=== PATIENT | female | born 1930 | race Caucasian/White ===

== ENCOUNTER 2016-05-16 14:59 | Inpatient (IN) | payer MEDICARE, OTHER ==
--- NOTE | ~2016-05-16 | HP ---
History And Physical [place] [id number] [place]. [address] NAME: KONSTANTIN LINTON : 32 STATUS : ADM Bartolo PAT#: [id number] AGE: 85 ADM/REG DATE : 05/16/16 MR#: [id number] REPORT SERV DATE: 05/17/16 DICTATED BY: ELIJAH MISTRY DATE: 05/16/16 REPORT STATUS : Draft TRANSCRIBED BY: YAYO DATE: 05/16/16 DATE OF ADMISSION: 05/16/2016 CHIEF COMPLAINT: Right flank and right-sided chest discomfort. HISTORY OF PRESENT ILLNESS: This is an 85-year-old female with a past medical history of chronic pain, on chronic pain management on chronic narcotics. The patient states that she began to have a right-sided flank and chest pain that radiated up to the right side of the neck when she was diagnosed in 01/2016 with pneumonia and has progressed. The patient has had recent admissions to the hospital. She states that she was admitted to the hospital in [place] and also states that she was diagnosed with a collapsed lung in 02/2016 and was sent to rehab after discharge. The patient was seen by ortho lactation specialist yesterday and had several spinal injections, however, required to be seeing at [facility] for worsening right-sided chest discomfort and a right flank discomfort. The patient at that time had a CTA of the chest at [facility] yesterday which was reported nondiagnostic. However, medical records are still pending. The patient presented to [facility] ER, seen in the ER by Dr. Herrmann, who ordered a chest x-ray with findings of a small apical right pneumothorax. The patient states she has been having hemoptysis as well for the past two days. She does take intermittent aspirin and also describes some night sweats and subjective fever and chills and associated nausea, positive constipation. Currently at this time denies any shortness of breath but does have generalized weakness. The hospitalist was called to admit the patient to the hospital. REVIEW OF SYSTEMS: Please refer to HPI. PAST MEDICAL HISTORY: Chronic atrial fibrillation; hypertension; hyperlipidemia; emphysema; arthritis; anxiety; GERD; chronic pain management, on chronic narcotics; pneumothorax in 02/2016; and degenerative joint disease. PAST SURGICAL HISTORY: Hysterectomy/BSO; cholecystectomy; bladder sling; breast surgery; knee surgery; and hernia repair with mesh. FAMILY HISTORY: Hypertension. SOCIAL HISTORY: Positive tobacco abuse history, approximately 60 pack years, quit approximately two weeks ago. No alcohol. Denies any illicit drugs and states that her son lives next door who helps to assist her. ALLERGIES: DILAUDID, MORPHINE, AND AMITRIPTYLINE. HOME MEDICATIONS: Biotin, digoxin 125 mcg p.o. daily, diltiazem 60 mg p.o. q.12 hours, Zofran 4 mg p.o. t.i.d. p.r.n., oxycodone SR 20 mg p.o. q.12 hours, Percocet 10/325 one tab p.o. five times a day p.r.n., Pravachol 20 mg p.o. daily, Zantac 150 mg p.o. b.i.d., turmeric capsules one capsule p.o. b.i.d., and milk thistle capsule p.o. daily. History And Physical [address] [address] NAME: KONSTANTIN LINTON : 32 STATUS : ADM Bartolo PAT#: [id number] AGE: 85 ADM/REG DATE : 05/16/16 MR#: [id number] REPORT SERV DATE: 05/17/16 DICTATED BY: ELIJAH MISTRY DATE: 05/16/16 REPORT STATUS : Draft TRANSCRIBED BY: YAYO DATE: 05/16/16 PHYSICAL EXAMINATION: VITAL SIGNS: Temp 97.7, blood pressure 104/50 with a pulse of 93, respiration of 22, and saturating 97% on room air. GENERAL: The patient is alert and oriented x3, currently frail, thin. HEENT EXAM: Pupils equal, round, and reactive to light. Extraocular muscles are intact. Anicteric sclerae. CARDIOVASCULAR: S1, S2. Regular rate and rhythm. No appreciated rubs or gallops. No JVD. RESPIRATORY: Clear to auscultation bilaterally. No wheezes or crackles. No signs of tachypnea. ABDOMEN: Positive bowel sounds. Soft with right upper quadrant tenderness to palpation. No rebound. No distention. EXTREMITIES: 2+ pulse bilaterally. No edema. NEURO: Cranial nerves II through XII grossly intact. Moves all four extremities. No neuro focal deficits. Gait slow requiring 1+ assist for standing but no neuro focal deficits. SKIN: Multiple Band-Aid, approximately seven in the thoracic spinal area from previous spinal procedure. IMAGIN. EKG with atrial fibrillation, ventricular rate of 81, no ST elevation. 2. Chest x-ray read by Dr. Garcia with a small right pneumothorax and a small amount of pneumomediastinum. 3. CT of the abdomen and pelvis without contrast ordered by Dr. Herrmann with multiple benign liver cysts, cholecystectomy, bile duct dilatation with common bile duct measuring 11 mm. No common bile duct stones identified. A retained stone throughout the colon consistent with constipation. No bowel obstruction or bowel wall inflammation. Several diverticula without acute diverticulitis. 4. Sodium 142, potassium 3.8, chloride of 109, bicarb of 26, BUN of 22, creatinine of 0.69 with a glucose of 106, magnesium of 1.8, lipase 79, troponin less than 0.02. White count of 8.9, hemoglobin of 11.1 with a platelet count of 208. INR of 1.2. ASSESSMENT AND PLAN: 1. Right pneumothorax, small apical area. 2. Hemoptysis. 3. Right upper quadrant abdominal pain and right-sided chest discomfort. 4. Constipation. 5. Debility. We will send for medical records from [facility] and also will consult Pulmonary to assist for right small apical pneumothorax, at this time small. We will follow up with a repeat PA and lateral in the morning and also have Pulmonary to assist. Unsure, if this is acute versus chronic. Also, recommend following up with CT imaging from [facility] or repeat CT without contrast for patient's complaint of night sweats with the hemoptysis, although no signs of infiltrate on chest x-ray. Also, recommend a right upper quadrant abdominal ultrasound for abdominal discomfort with common bile duct dilatation which may be physiologic secondary to the patient's cholecystectomy, also we will continue with the PPI and consider GI consult for the patient's abdominal discomfort. The patient sees Dr. Alas. History And Physical [address] [address] NAME: KONSTANTIN LINTON : 32 STATUS : ADM Bartolo PAT#: [id number] AGE: 85 ADM/REG DATE : 05/16/16 MR#: [id number] REPORT SERV DATE: 05/17/16 DICTATED BY: ELIJAH MISTRY DATE: 05/16/16 REPORT STATUS : Draft TRANSCRIBED BY: YAYO DATE: 05/16/16 The patient will be followed by Dr. Damon Arriaga, who will look into this patient's care. [facility]/YAYO Elijah Mistry M.D. / [id number] CC: Damon Arriaga Jr, MD
--- NOTE | ~2016-05-16 | DS ---
Discharge Summary [place] [address] [facility] [place]. [address] NAME: KONSTANTIN LINTON : 32 STATUS : DIS IN PAT#: [id number] AGE: 85 ADM/REG DATE : 05/18/16 MR#: [id number] REPORT SERV DATE: 05/20/16 DICTATED BY: JR. ARRIAGA WILLIAM JOHN DATE: 05/19/16 REPORT STATUS : Draft TRANSCRIBED BY: YAYO DATE: 05/19/16 ADMISSION DATE: 05/18/2016 DISCHARGE DATE: 05/19/2016 DISCHARGE DIAGNOSES: Include: 1. Small right apical pneumothorax. 2. Hemoptysis. 3. Right upper quadrant and right thoracic pain secondary to pneumothorax. 4. Debility. 5. Fecal stasis with chronic narcotic use. 6. Tobacco use. OPERATIONS, PROCEDURES, AND TREATMENTS: Include: 1. Chest x-ray done 05/16 which showed small right pneumothorax, a small amount of pneumomediastinum. Findings were related to Dr. Herrmann in the emergency room. 2. CT of the abdomen and pelvis done 05/16/2016 which showed an enlarged liver with multiple benign-appearing liver cysts. The largest cyst measured 6.8 x 6.1 cm. There were changes of cholecystectomy with bile duct dilation with common bile duct measuring 11 mm with mild intrahepatic bile duct dilation. There was retained stool throughout the colon consistent with constipation. There was residual contrast in the collecting system. 3. PA and lateral chest x-ray done 05/17 which showed small right apical pneumothorax without significant change. 4. CT of the chest without contrast done 05/17 showed interval development of a very small volume, estimated less than 5%, right-sided pneumothorax with interval development of right greater than left subsegmental atelectasis and trace pleural effusion. There is very small quantity of phlegm or mucus in lower trachea. 5. Ultrasound of liver done 05/17 showed multiple benign hepatic cysts, status post cholecystectomy changes, and intra and extrahepatic bile duct dilation. 6. PA and lateral chest x-ray done 05/18 showed small right apical pneumothorax, mildly improved. 7. PA and lateral chest x-ray done 05/19 showed minimal right apical pneumothorax, slightly smaller compared to 05/18, otherwise no acute findings. DISCHARGE MEDICATIONS: Include 1. Digoxin 0.125 mg orally daily. 2. Diltiazem 60 mg orally every 12 hours. 3. Colace 100 mg orally twice a day. 4. Movantik 12.5 mg orally daily. 5. Pravachol 20 mg orally daily. 6. Spiriva 18 mcg inhaled daily. 7. Oxycodone SR 20 mg orally every 12 hours. 8. Dulera 200/5 two puffs twice a day. 9. Zofran 4 mg three times a day as needed. 10.Percocet 10/325 one tablet 5 times a day as needed. 11.Zantac 150 mg orally twice a day. Discharge Summary [facility] [address] [place]. [address] NAME: KONSTANTIN LINTON : 32 STATUS : DIS IN PAT#: [id number] AGE: 85 ADM/REG DATE : 05/18/16 MR#: [id number] REPORT SERV DATE: 05/20/16 DICTATED BY: JR. ARRIAGA WILLIAM JOHN DATE: 05/19/16 REPORT STATUS : Draft TRANSCRIBED BY: YAYO DATE: 05/19/16 12.Biotin one capsule daily. 13.Turmeric capsules one twice a day. 14.Milk thistle capsule one twice a day. 15.Albuterol metered-dose inhaler two puffs every six hours. HOSPITAL COURSE: The patient is an 85-year-old female who presented to the emergency room on 05/16 with right flank and right-sided chest discomfort. The patient has chronic pain on chronic narcotics. She said she began having right-sided flank and chest pain and pain radiating up the right side of the neck when she was diagnosed with pneumonia in January 2016. She has had recent admissions since that time. She was diagnosed with a pneumothorax in February 2016 and sent to rehab after discharge. The patient was seen by orthopedic academic program specialist as an outpatient, has had several spinal injections, and was then seen at [facility] for right flank discomfort at which time, she had a CT angiogram of the chest, reportedly nondiagnostic. The patient presented to emergency room at [facility] on 05/16. Chest x-ray revealed a pneumothorax as detailed above. The patient's initial exam showed a temperature of 97.7, blood pressure 104/50, heart rate 93, respiratory rate 22, saturation 97% on room air. She is frail and thin. Lung exam was unremarkable. Abdominal exam was soft with right upper quadrant tenderness to palpation. Neurologic exam was grossly normal. Chest x-ray and CT of the abdomen and pelvis are detailed above. The patient was admitted to the Clinical Decision Unit for small right pneumothorax. She was seen in consultation by Pulmonary Medicine who felt intervention at this time was unwarranted. A CT of the chest was done and as detailed above. There was no bullous disease on scan, and watchful waiting was elected. The patient had multiple followup chest x-rays with gradual resolution of the pneumothorax. If the patient is felt by Pulmonary to be appropriate for discharge, she will be discharged today. Regarding the fecal stasis, the patient was seen in consultation by GI, Dr. Ann. Movantik was prescribed. The patient had bowel movements and felt better on this regimen. Further followup is per her primary care physician. Regarding debility, the patient was evaluated by Physical Therapy. She is felt to be appropriate for discharge home. The remainder of the patient's health problems remained stable. She will be discharged home today 05/19/2016 in good condition. Her diet will be regular. Activity as tolerated. She should stop smoking. For discharge exam and laboratory, please see the daily progress note. This discharge took 34 minutes for patient encounter, coordination of care, and documentation. [facility]/YAYO Damon Arriaga Jr, MD Discharge Summary [address] [address] NAME: KONSTANTIN LINTON : 32 STATUS : DIS IN PAT#: [id number] AGE: 85 ADM/REG DATE : 05/18/16 MR#: [id number] REPORT SERV DATE: 05/20/16 DICTATED BY: JR. ARRIAGA WILLIAM JOHN DATE: 05/19/16 REPORT STATUS : Draft TRANSCRIBED BY: YAYO DATE: 05/19/16 / [id number]
--- NOTE | ~2016-05-16 | CN ---
Consultation Report [facility] [address] [place]. [address] NAME: KONSTANTIN PAYTON : 32 STATUS : ADM Bartolo PAT#: [id number] AGE: 85 ADM/REG DATE : 05/16/16 MR#: [id number] REPORT SERV DATE: 05/17/16 DICTATED BY: JASON DUTTA DATE: 05/17/16 REPORT STATUS : Draft TRANSCRIBED BY: MODL DATE: 05/17/16 CONSULTATION DATE OF CONSULTATION: 05/17/2016 CHIEF COMPLAINT: Right-sided pleuritic pain in a patient with a small right-sided pneumothorax. HISTORY OF PRESENT ILLNESS: Mrs. Konstantin Payton is a pleasant 85-year-old white female with a past medical history significant for chronic back pain, on pain management, previous pneumothorax, COPD, and tobacco dependency, who presents to [facility]'s emergency room with complaints of right-sided pleuritic pain and right-sided flank pain. It should be noted that, Mrs. Payton has been hospitalized recently at outside facility. Mrs. Payton is followed by Dr. Ever Mayo for her outpatient pulmonary needs. She is on a pulmonary regimen of albuterol, Symbicort as well as Daliresp. She does not usually require supplemental oxygen. The patient states that, she quit smoking approximately two weeks ago, prior to this time, she smoked approximately one pack a day for a period of 60 years. She largely denies symptomatology related to obstructive sleep apnea. She has difficulty quantifying her exercise tolerance today as she is primarily limited by chronic lower back pain. It should be noted that, Mrs. Payton provides a questionable history. That being said, it seems that she was treated in January for a pneumonia. She states that, this did resolve, and she eventually transitioned to home. Later in February, she had a right-sided pneumothorax that did not require intervention. More recently, she presented to an orthopedic spine specialists, where she received several spinal injections. After this time, she began to feel a different type of back pain, which radiated anteriorly as well as into her right flank. As such, she was seen at [facility]. A CT of the chest was obtained there and has been imported in our PAC system. From my interpretation, there are no signs of a right pneumothorax at that time. [facility] Upon arrival, she was found to be normotensive and afebrile. She had appropriate oxygenation on room air. Her white blood cell count was 8900. Creatinine was 0.69. She eventually underwent a chest x-ray, which revealed a small right pneumothorax. She also underwent imaging of her abdomen, which demonstrated multiple cysts on her liver. She was provided with pain medications with some improvement in her right-sided pain. For the aforementioned reasons, she has been referred to the Pulmonary Service for further assessment. The patient's main pulmonary complaint is right-sided pleuritic pain. This is worse on inspiration. She does have some mild shortness of breath. This is worse on exertion and relieved by rest. She denies any wheezing or purulent sputum production. She did have one Consultation Report [address] [place]. [address] NAME: KONSTANTIN PAYTON : 32 STATUS : ADM Bartolo PAT#: [id number] AGE: 85 ADM/REG DATE : 05/16/16 MR#: [id number] REPORT SERV DATE: 05/17/16 DICTATED BY: JASON DUTTA DATE: 05/17/16 REPORT STATUS : Draft TRANSCRIBED BY: YAYO DATE: 05/17/16 remote episode of hemoptysis on Sunday. She denies any ongoing episodes of hemoptysis. She has had pneumonia in the past. She does carry a formal diagnosis of COPD. She denies childhood asthma or frequent exacerbations of her COPD. The patient does have known chronic atrial fibrillation as well as hypertension and dyslipidemia. She currently denies any left-sided chest pain or radiating chest pain into her neck or shoulders. She denies any murmurs. She denies any orthopnea, paroxysmal nocturnal dyspnea, or dependent edema. In regard to constitutional symptoms, she currently denies fever, chills, nausea, vomiting, abdominal pain, or edema. PAST MEDICAL HISTORY: 1. Chronic pain, on management .. 2. Pneumonia. 3. Previous pneumothorax. 4. Chronic atrial fibrillation. 5. Hypertension. 6. Dyslipidemia. 7. COPD. 8. Osteoarthritis. 9. Anxiety. 10.Gastroesophageal reflux disease. PAST SURGICAL HISTORY: 1. Total abdominal hysterectomy with bilateral salpingo-oophorectomy. 2. Cholecystectomy. 3. Bladder sling. 4. Previous knee surgery. 5. Left hernia repair. FAMILY HISTORY: The patient denies family history of lung disease. SOCIAL HISTORY: The patient is . She has a son, who lives next door, and helps with her care. She previously worked at [employer] and denies any known exposures to dust, silica, or asbestos. She denies any pets in the home. She previously had birds. TOBACCO/ALCOHOL: As previously mentioned, the patient quit smoking approximately two weeks ago, prior to this time, she smoked approximately one pack a day for a period of sixty years. She denies any recent alcohol or illicit drug use. MEDICATIONS: Digoxin 0.125 mg, diltiazem 60 mg, ondansetron 4 mg, oxycodone 20 mg, Percocet 10/325, pravastatin 20 mg, ranitidine 150 mg. ALLERGIES: THE PATIENT HAS ALLERGY TO MORPHINE, AMITRIPTYLINE. OF NOTE, DILAUDID IS ON HER ALLERGY LIST. WE WILL REVISIT THIS WITH THE PATIENT WELL OUR [facility] IN PHARMACY. Consultation Report [address] [address] NAME: KONSTANTIN PAYTON : 32 STATUS : ADM Bartolo PAT#: [id number] AGE: 85 ADM/REG DATE : 05/16/16 MR#: [id number] REPORT SERV DATE: 05/17/16 DICTATED BY: JASON DUTTA DATE: 05/17/16 REPORT STATUS : Draft TRANSCRIBED BY: YAYO DATE: 05/17/16 PHYSICAL EXAMINATION: VITAL SIGNS: Blood pressure is 108/57, heart rate is 98, T-max is 97.6, respiratory rate is 14, SpO2 is 96 on room air. GENERAL: The patient is a pleasant, well-nourished/well-developed female, who is not currently exhibiting any signs of acute distress. Skin: Skin with appropriate texture and turgor. No rashes, lesions, or ulcers. Nails are clear without cyanosis or clubbing. HEENT: Head: Skull is normocephalic/atraumatic. Facies symmetric. No masses or lesions. Eyes: Sclera anicteric, conjunctiva pink without exudates. Extra ocular movements intact. Pupils are equal, round, reactive to light. Ears: Auricles and tragus without pain to palpation. Hearing is grossly intact. Nose: Bilateral nasal patency. Sinuses without tenderness upon palpation. Throat: The patient is edentulous. Lips, oral mucosa, tongue, palate, and pharynx pink and moist without lesions. Uvula rises equally on phonation. Tongue midline without deviation. NECK: Neck supple. Trachea midline. No cervical lymphadenopathy appreciated. THORAX/LUNGS: Thorax is symmetric with equal chest rise. Diminished breath sounds throughout. No rales, wheezes, rhonchi CARDIOVASCULAR: Irregular rhythm. No murmurs, rubs, or gallops. Anterior chest without thrills, heaves, or lifts. ABDOMEN: Soft. Non-distended, non-tender. Active bowel sounds in all four quadrants. No hepatosplenomegaly noted. PERIPHERAL VASCULAR: No edema. No varicosities, stasis changes, open sores, ulcerations, or phlebitis. 2+ pulses in radial and dorsalis pedis. MUSCULOSKELETAL: Full AROM and PROM in all joints. No evidence of erythema, deformity, or crepitus. NEUROLOGIC: CN II - XII grossly intact. Good muscle bulk and tone bilaterally. Strength 5/5 throughout. PSYCHIATRIC: Patient demonstrates good judgment and insight. Pt is A&O x 3. ACCESSORY DATA: Reveals a creatinine of 0.73, Mag is 1.8. White blood cell count is 5800. CT of the chest reveals a new right-sided pneumothorax approximately 5% of volume. There is a trace right pleural effusion. IMPRESSION: 1. Right-sided pneumothorax. 2. Chronic obstructive pulmonary disease. 3. Atrial fibrillation. 4. Chronic pain. 5. Tobacco dependency/complicated. PLAN: 1. The etiology of her recurrent right-sided pneumothorax is not entirely clear. On CT scan, it does not appear that she has significant bullous disease. That being said, she does have COPD and this certainly could be a contributing factor. The patient denied any trauma. Of note, she did have the recent injections in her posterior Consultation Report [address] [address] NAME: KONSTANTIN PAYTON : 32 STATUS : ADM Bartolo PAT#: [id number] AGE: 85 ADM/REG DATE : 05/16/16 MR#: [id number] REPORT SERV DATE: 05/17/16 DICTATED BY: JASON DUTTA DATE: 05/17/16 REPORT STATUS : Draft TRANSCRIBED BY: YAYO DATE: 05/17/16 thorax. At this time, we will plan on close surveillance with chest x-ray for increasing size of the right-sided pneumothorax. We will have a discussion regarding needle aspiration. This may be able to manage with a PneumoDart as well. If we are required to enter the pleural space, we may consider doing pleurodesis. 2. 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 3. In regard to the patient's tobacco dependency/complicated, we have spent greater than 10 minutes reinforcing the patient's plan for smoking cessation. The aforementioned impression and plan has been discussed with Dr. Andrade, who will follow further recommendations. We thank you for this consult and look forward to participating in the care of Mrs. Konstantin Payton. [facility]EL Jason Dutta PA-C / [id number] CC: Damon Arriaga Jr, MD
--- NOTE | ~2016-05-16 | CN ---
Consultation Report [facility] [address] [place]. [address] NAME: KONSTANTIN PAYTON : 34 STATUS : ADM Bartolo PAT#: [id number] AGE: 85 ADM/REG DATE : 05/16/16 MR#: [id number] REPORT SERV DATE: 05/17/16 DICTATED BY: ABNER SIERRA DATE: 05/17/16 REPORT STATUS : Draft TRANSCRIBED BY: MODTaras DATE: 05/17/16 GI CONSULTATION DATE OF CONSULTATION: 05/16/2016 REASON FOR CONSULTATION: Evaluation and management of right upper quadrant pain/constipation. HISTORY OF PRESENT ILLNESS: Ms. Payton is an 85-year-old female patient, who is known to Dr. Regine Alas in the outpatient setting, who presented to [facility] on 05/16/2016 with a chief complaint of coughing up blood and right-sided chest discomfort. She has also had some reported nausea as well as lower abdominal discomfort. She has a past medical history of chronic pain requiring chronic pain management with narcotic medications. She has a history of recent pneumonia in 01/2016, being hospitalized at [facility]. She states that she also had issues with a "collapsed lung" and was recently in rehab in 02/2016. She has chronic low back pain and was seen by orthopedic sap specialist on the day prior to admission and had spinal injections. She has had worsening of her right sided chest discomfort as well as she states right flank pain, which has been chronic for the last two years. She has not had a bowel movement for five days. She has some mild nausea and reflux. She states she has had fever at home, but cannot tell a temperature reading that she obtained herself. She has undergone ultrasound of the right upper quadrant showing status post cholecystectomy some mild intra and extrahepatic bile duct dilation, likely secondary to biliary ectasia. CT showed liver cysts and constipation. Chest x-ray with a small right pneumothorax and small pneumomediastinum. She has been seen by Pulmonary. I have discussed with the patient that at present we will begin her on Movantik as well as p.r.n. laxatives. We will obtain LFTs. No current indication for endoscopy at this time. PAST MEDICAL HISTORY: Positive for diverticulosis, diverticulitis, dysphagia, last EGD in 2013 with normal duodenum, normal stomach with cricopharyngeus and a benign-appearing esophageal stricture, which was dilated. Chronic atrial fibrillation, hypertension, hyperlipidemia, emphysema, arthritis, anxiety, GERD, chronic pain management requiring narcotic pain medications, pneumothorax, and degenerative joint disease. PAST SURGICAL HISTORY: Hysterectomy, bilateral salpingo-oophorectomy, cholecystectomy, bladder sling, breast surgery, knee surgery, hernia repair with mesh. FAMILY HISTORY: Noncontributory from a GI standpoint. SOCIAL HISTORY: Positive for tobacco use [id number], cessation was roughly 2 weeks ago per her report. Denies alcohol or illicit drugs. She lives independently with family nearby. ALLERGIES: TO DILAUDID, MORPHINE, AND AMITRIPTYLINE. Consultation Report [address] [place]. [address] NAME: KONSTANTIN PAYTON : 34 STATUS : ADM Bartolo PAT#: [id number] AGE: 85 ADM/REG DATE : 05/16/16 MR#: [id number] REPORT SERV DATE: 05/17/16 DICTATED BY: ABNER SIERRA DATE: 05/17/16 REPORT STATUS : Draft TRANSCRIBED BY: YAYO DATE: 05/17/16 HOME MEDICATIONS: Biotin, Lanoxin, Cardizem, Zofran, OxyContin, Percocet Pravachol, Zantac, turmeric, and milk thistle. REVIEW OF SYSTEMS: A 10-point review of systems has been obtained with pertinent positives are being addressed in the history of present illness. PERTINENT LABORATORY DATA: Sodium is 143, potassium is 4.1, BUN is 18, creatinine is 0.73. White count 5.8, hemoglobin 10.9, hematocrit 33.6, platelet count of 191 with an INR of 1.2. PHYSICAL EXAMINATION: VITAL SIGNS: Temperature 97.4, pulse 98, respirations 20, blood pressure is 114/82. NEURO: Reveals an alert, frail, and thin-appearing female, sitting up in bed. GENERAL: Cooperative, no apparent distress. She is awake, she is alert, and she is oriented x3. HEAD, EARS, EYES, NOSE, AND THROAT: Anicteric. Pupils are equal, round, and reactive to light and accommodation. Normocephalic and atraumatic. NECK: No JVD. No palpable nodes. LUNGS: Decreased throughout. Normal respiratory effort exhibited. Equal expansion. CARDIOVASCULAR: Irregularly irregular rate and rhythm. ABDOMEN: Soft with mild lower abdominal distention. Active bowel sounds in all four quadrants. Some right upper quadrant tenderness to palpation without rebound or guarding. No organomegaly appreciated. EXTREMITIES: No edema. Normal distal pulses. SKIN: Warm, dry, and intact. ASSESSMENT: 1. Right upper quadrant abdominal pain, acute on chronic. The patient states this has been ongoing for the last two years. 2. Fecal stasis. 3. Right pneumothorax. 4. Chronic obstructive pulmonary disease. 5. Atrial fibrillation. 6. Chronic pain requiring narcotic pain medication. 7. Tobacco dependence. PLAN: 1. We will begin the patient on Movantik. 2. Give her milk of magnesia now as well as one Dulcolax suppository. 3. We will obtain a.m. x-rays to monitor her fecal stasis. 4. We will check her LFTs. Consultation Report [address] [address] NAME: KONSTANTIN PAYTON : 34 STATUS : ADM Bartolo PAT#: [id number] AGE: 85 ADM/REG DATE : 05/16/16 MR#: [id number] REPORT SERV DATE: 05/17/16 DICTATED BY: ABNER SIERRA DATE: 05/17/16 REPORT STATUS : Draft TRANSCRIBED BY: YAYO DATE: 05/17/16 OUMOU/YAYO TABATHA Guadalupe / [id number] CC: Damon Arriaga Jr, CHANNING COVARRUBIAS
[2016-05-16 14:22] LABS: BASOPHILS 0.1 %; BASOPHILS ABSOLUTE 0.01 10/3/uL (0.0-0.16); EOSINOPHILS 1.1 %; ER CBC TAT 0 Hrs 10 Mins; HEMATOCRIT 35.1 % (36.0-48.0); HEMOGLOBIN 11.1 g/dL (12.0-16.0); IMMATURE GRANULOCYTES 0.1 %; IMMATURE GRANULOCYTES ABSOLUTE 0.01 10/3/uL (0.0-0.11); LYMPHOCYTES 20.3 %; LYMPHOCYTES ABSOLUTE 1.81 10/3/uL (0.67-4.30); MEAN CORPUS HGB CONC 31.6 g/dL (32.0-36.0); MEAN CORPUSCULAR HEMOGLOB 27.4 pg (26.0-34.0); MEAN CORPUSCULAR VOLUME 86.7 fL (80-100); MEAN PLATELET VOLUME 9.6 fL (9.2-13.0); MONOCYTES 8.5 %; MONOCYTES ABSOLUTE 0.76 10/3/uL (0.21-1.20); NEUTROPHILS 69.9 %; NEUTROPHILS ABSOLUTE 6.21 10/3/uL (2.02-8.40); PLATELET COUNT 208 10/3/uL (150-400); RBC DISTRIBUTION WIDTH 15.9 % (12.0-16.0); RED CELL COUNT 4.05 10/6/uL (4.0-5.6); WHITE BLOOD CELLS 8.9 10/3/uL (4.5-10.5)
[2016-05-16 14:24] LABS: MANUAL DIFF NO %
[2016-05-16 14:33] LABS: INTERNATIONAL NORMAL RATI 1.2 UNITS (-); PROTIME (NOT ORD) 15.2 SEC (12.0-14.5)
[2016-05-16 14:34] LABS: BUN (BLOOD UREA NITROGEN) 22 MG/DL (6-23); CALCIUM, SERUM 8.4 MG/DL (8.5-10.4); CHEST PAIN PROFILE TAT 0 Hrs 22 Mins; CHLORIDE, SERUM 109 MMOL/L (96-112); CO2 (CARBON DIOXIDE) 26 MMOL/L (24-34); CREATININE 0.69 MG/DL (0.55-1.02); GFR AFRICAN AMERICAN 93 ML/MIN (>=60); GFR NON AFRICAN AMERICAN 81 ML/MIN (>=60); GLUCOSE, SERUM 106 MG/DL (60-99); PARTIAL THROMBO TIME 32.8 SEC (22.5-37.2); POTASSIUM, SERUM 3.8 MMOL/L (3.5-5.3); SODIUM, SERUM 142 MMOL/L (135-148); TROPONIN I <0.02 NG/ML (<0.05)
[~2016-05-16 14:59] MED LIST: CARD120 PO; CARDCD120 PO; CELEXA40 MG PO; DALIRESP500 MCG PO; ENDOCET1 TA1 PO; FLEX PO; FLEXERIL5 MG PO; FLONASE NAS; INHALER; ISOSORB DIN30 MG PO; MIACALCIN NAS; NEUR300 PO; NEXIUM40 PO; NORCO1 TAB PO; OXYCON40 PO; PLAVIX PO; PRAVACHOL40 MG PO; SOMATAB PO; TESS PO; VENTOLIN HFA INH; XANAX1 MG PO; XOPENEX0.63 MG INH
[2016-05-16] MEDS ORDERED: OXYCON20 PO (16:30)
[2016-05-16] MEDS ORDERED: LAN125 PO (16:30)
[2016-05-16] MEDS ORDERED: ZOFRAN ODT4 MG PO (16:30)
[2016-05-16] MEDS ORDERED: PERCOCET 10/3251 TAB PO (16:30)
[2016-05-16] MEDS ORDERED: PRAVAC PO (16:31)
[2016-05-16] MEDS ORDERED: HARD NAILS PO (16:31)
[2016-05-16] MEDS ORDERED: ZANTAC150 MG PO (16:31)
[2016-05-16] MEDS ORDERED: CARD60 PO (16:31)
[2016-05-16] MEDS ORDERED: TUMERIC PO (16:32)
[2016-05-16] MEDS ORDERED: MILK THISTLE PO (16:32)
[2016-05-16 17:27] LABS: ASCORBIC ACID (UR NOT ORDER) NEG (NEG); BILIRUBIN, URINE NEGATIVE (NEG); ER URINALYSIS TAT 0 Hrs 11 Mins; KETONE, URINE NEGATIVE (NEG); LEUKOCYTE ESTERASE(NOT OR NEG (NEG); NITRITE (URINE) NEG (NEG); WBC (NOT ORDERED) (RFLEX) 3 (0-5)
[2016-05-17 01:04] LABS: CPK 84 U/L (0-200); TROPONIN I <0.02 NG/ML (<0.05)
[2016-05-17 01:06] LABS: CK-MB 1.1 NG/ML
[2016-05-17 04:44] LABS: BUN (BLOOD UREA NITROGEN) 18 MG/DL (6-23); CALCIUM, SERUM 8.7 MG/DL (8.5-10.4); CHLORIDE, SERUM 111 MMOL/L (96-112); CO2 (CARBON DIOXIDE) 25 MMOL/L (24-34); CREATININE 0.73 MG/DL (0.55-1.02); GFR AFRICAN AMERICAN 88 ML/MIN (>=60); GFR NON AFRICAN AMERICAN 76 ML/MIN (>=60); GLUCOSE, SERUM 109 MG/DL (60-99); POTASSIUM, SERUM 4.1 MMOL/L (3.5-5.3); SODIUM, SERUM 143 MMOL/L (135-148)
[2016-05-17 06:55] LABS: BASOPHILS 0.2 %; BASOPHILS ABSOLUTE 0.01 10/3/uL (0.0-0.16); EOSINOPHILS 2.3 %; EOSINOPHILS ABSOLUTE 0.13 10/3/uL (0.0-0.53); HEMATOCRIT 33.6 % (36.0-48.0); HEMOGLOBIN 10.9 g/dL (12.0-16.0); IMMATURE GRANULOCYTES 0.2 %; IMMATURE GRANULOCYTES ABSOLUTE 0.01 10/3/uL (0.0-0.11); LYMPHOCYTES 31.4 %; LYMPHOCYTES ABSOLUTE 1.81 10/3/uL (0.67-4.30); MEAN CORPUS HGB CONC 32.4 g/dL (32.0-36.0); MEAN CORPUSCULAR HEMOGLOB 27.9 pg (26.0-34.0); MEAN CORPUSCULAR VOLUME 85.9 fL (80-100); MEAN PLATELET VOLUME 9.5 fL (9.2-13.0); MONOCYTES 11.4 %; MONOCYTES ABSOLUTE 0.66 10/3/uL (0.21-1.20); NEUTROPHILS 54.5 %; NEUTROPHILS ABSOLUTE 3.15 10/3/uL (2.02-8.40); PLATELET COUNT 191 10/3/uL (150-400); RED CELL COUNT 3.91 10/6/uL (4.0-5.6); WHITE BLOOD CELLS 5.8 10/3/uL (4.5-10.5)
[2016-05-17 06:57] LABS: MANUAL DIFF NO %
[2016-05-17 07:25] LABS: CPK 77 U/L (0-200); TROPONIN I <0.02 NG/ML (<0.05)
[2016-05-18 06:44] LABS: ALBUMIN 3.1 G/DL (3.5-5.0); ALKALINE PHOSPHATASE 77 U/L (45-117); BUN (BLOOD UREA NITROGEN) 17 MG/DL (6-23); CALCIUM, SERUM 9.3 MG/DL (8.5-10.4); CHLORIDE, SERUM 106 MMOL/L (96-112); CO2 (CARBON DIOXIDE) 26 MMOL/L (24-34); GFR AFRICAN AMERICAN 98 ML/MIN (>=60); GFR NON AFRICAN AMERICAN 84 ML/MIN (>=60); GLUCOSE, SERUM 100 MG/DL (60-99); PHOSPHORUS, SERUM 3.4 MG/DL (2.5-4.5); POTASSIUM, SERUM 4.3 MMOL/L (3.5-5.3); SGOT(AST) 19 U/L (5-40); SGPT(ALT) 18 U/L (5-65); SODIUM, SERUM 140 MMOL/L (135-148); TOTAL BILIRUBIN 0.3 MG/DL (0-1.2); TOTAL PROTEIN 6.5 G/DL (6.0-8.5)
[2016-05-18 06:46] LABS: DIRECT BILIRUBIN < 0.1 MG/DL (0.0-0.4); INDIRECT BILIRUBIN(NOT ORDER) 0.2 MG/DL (0.1-0.9)
[2016-05-19] MEDS ORDERED: PROAIR HFA INH (10:46)
[2016-05-19] MEDS ORDERED: DSS PO (10:48)
[2016-05-19] MEDS ORDERED: MOVANTIK12.5 MG PO (10:49)
[2016-05-19] MEDS ORDERED: PRAVAC PO (10:50)
[2016-05-19] MEDS ORDERED: DULERA 200 MCG/13 GM INH (10:52)
[2016-05-19] MEDS ORDERED: SPIRIVA INH (10:52)
[2016-05-19] MEDS ORDERED: ANOROELLIPTA INH (12:03)
== END 2016-05-19 13:34 | disposition home or self-care (01) | DRG 200 ==
LOC: ER 14:59 → CDU1 18:20 → CDU2 18:35
PROVIDERS: Emergency Medicine; Internal Medicine; Physician Assistant Medical
DX: J93.9 Pneumothorax, unspecified (principal); R04.2 Hemoptysis; J98.2 Interstitial emphysema; K59.03 Drug induced constipation; T40.605A Adverse effect of unspecified narcotics, initial encounter; G89.29 Other chronic pain; Z87.01 Personal history of pneumonia (recurrent); Z79.891 Long term (current) use of opiate analgesic; I48.2 Chronic atrial fibrillation; I10 Essential (primary) hypertension; E78.5 Hyperlipidemia, unspecified; F41.9 Anxiety disorder, unspecified; K21.9 Gastro-esophageal reflux disease without esophagitis; M19.90 Unspecified osteoarthritis, unspecified site; J44.9 Chronic obstructive pulmonary disease, unspecified; Z90.710 Acquired absence of both cervix and uterus; Z90.49 Acquired absence of other specified parts of digestive tract; Z88.5 Allergy status to narcotic agent; F17.219 Nicotine dependence, cigarettes, with unspecified nicotine-induced disorders
CPT/HCPCS: 71010; 71020; 71250; 74176; 76705; 80048; 80076; 80162; 81001; 82550; 82553; 83690; 83735; 84100; 84484; 85025; 85610; 85730; 87449; 93005; 94640; 96374; 96375; 97161-GP; 99285; A9270-GY; G8978-CK-GP; G8979-CJ-GP; J1170; J2405